=== PATIENT | female | born 1945 | race Caucasian/White ===

== ENCOUNTER 2018-04-21 19:59 | Inpatient (IN) | payer MEDICARE, OTHER ==
[2018-04-21] MEDS ORDERED: SODIUM CHLORIDE 0.9% 1,000 ML IV STA (20:25)
[2018-04-21 20:37] LABS: Basophils % (A) 1 %; Eosinophils # (A) 0.1 k/uL (0-0.7); Eosinophils % (A) 2 %; HCT 48.4 % (34.0-46.0); HGB 15.6 gm/dL (11.4-16.0); Lymphocytes # (A) 1.8 k/uL (1.0-4.8); Lymphocytes % (A) 25 %; MCH 29.8 pg (25.0-35.0); MCHC 32.3 g/dL (31.0-37.0); MCV 92.1 fL (80.0-100.0); Mean Platelet Volume 8.2; Monocytes # (A) 0.5 k/uL (0-1.0); Monocytes % (A) 7 %; Neutrophils # (A) 4.4 k/uL (1.3-7.7); Neutrophils % (A) 63 %; Platelet Count 197 k/uL (150-450); RBC 5.25 m/uL (3.80-5.40); RDW 12.8 % (11.5-15.5); WBC 6.9 k/uL (3.8-10.6)
[2018-04-21 20:45] LABS: INR 0.9 (<1.2); Partial Thromboplastin Time 24.5 sec (22.0-30.0); Prothrombin Time 9.4 sec (9.0-12.0)
[2018-04-21 20:48] LABS: Albumin 4.3 g/dL (3.5-5.0); Calcium 9.8 mg/dL (8.4-10.2); Potassium 4.4 mmol/L (3.5-5.1); Total Bilirubin 0.2 mg/dL (0.2-1.3); Total Protein 6.7 g/dL (6.3-8.2)
[2018-04-21 20:51] LABS: Creatine Kinase 80 U/L (30-135)
--- NOTE | 2018-04-21 21:04 | CT ---
EXAMINATION TYPE: CT angio head neck DATE OF EXAM: 04/21/2018 HISTORY: Left hand numbness. COMPARISON: None CT DLP: 217.3 mGycm. Automated Exposure Control for Dose Reduction was Utilized. TECHNIQUE: CTA scan of the neck is performed with IV Contrast, patient injected with 65ml mL of Isov ue 370, axial images are obtained, coronal and sagittal reformatted images are reviewed. Three-D leonardo nstructed images are created on an independent workstation and reviewed. FINDINGS: There is atheromatous change at the aortic arch. There is normal branching pattern of the great vesse ls on the aortic arch. There is arterial flow in both vertebral arteries. Right vertebral artery slig htly larger than the left. There is arterial flow in the common internal and external carotid arteries bilaterally. There is dif fuse plaque at the carotid artery bifurcations. Plaque is more on the right side compared to the left . There is lumen narrowing on the left side of 30% and on the right side of 50-60%. There is no evide nce of carotid or vertebral artery dissection. There is arterial flow in the vertebrobasilar artery system. There is arterial flow in the anterior m iddle and posterior cerebral arteries. There is bilateral patency of the posterior communicating liban adam. I see no evidence of aneurysm or neovascularity. There is normal contrast opacification of the venous sinuses. IMPRESSION: No intracranial abnormality demonstrated. Atherosclerotic plaque at the carotid artery bifurcations and 60% stenosis on the right side at the o rigin right internal carotid artery and 30% on the left side.
[2018-04-21 21:05] LABS: Creatine Kinase MB 1.4 ng/mL (0.0-2.4); Troponin I <0.012 ng/mL (0.000-0.034)
[2018-04-21 21:08] LABS: Glucose,Whole Blood 99 mg/dL (75-99)
--- NOTE | 2018-04-21 21:28 | CT ---
EXAMINATION TYPE: CT brain wo con for TPA DATE OF EXAM: 04/21/2018 COMPARISON: 07/19/2010 HISTORY: Left hand numbness. CT DLP: 951.7 mGycm Automated exposure control for dose reduction was used. FINDINGS: There is mild cerebral cortical atrophy. There is no mass effect nor midline shift. There is no sign of intracranial hemorrhage. The calvarium is intact. IMPRESSION: MILD ATROPHY. NO ACUTE INTRACRANIAL ABNORMALITY. NO CHANGE.
--- NOTE | 2018-04-21 21:35 | XR ---
EXAMINATION TYPE: XR chest 2V DATE OF EXAM: 04/21/2018 COMPARISON: NONE HISTORY: Numbness TECHNIQUE: Frontal and lateral views of the chest are obtained. FINDINGS: Heart and mediastinum are normal. Lungs are clear. Costophrenic angles are clear. There is mild flattening of the diaphragm. Bony thorax is intact. IMPRESSION: There is probably some COPD. No active cardiopulmonary disease.
[2018-04-21] MEDS ORDERED: ASPIRIN 81 MG PO STA (21:40)
[2018-04-21] MEDS ORDERED: NALOXONE 0.4 MG/ML 1 ML VIAL IV PRN (21:44)
--- NOTE | 2018-04-21 21:46 | ED ---
Neuro HPI - General Chief Complaint: Neuro Symptoms/Deficit Stated Complaint: Hand Numbness Source: patient Mode of arrival: ambulatory Limitations: no limitations - History of Present Illness Is the patient presenting with stroke symptoms?: Yes Last Known Well Date: 04/21/18 Last Known Well Time: 19:15 Initial Comments: Dictation was produced using Xambala dictation software. please excuse any grammatical, word or spelling errors. Chief Complaint: Patient is a 72-year-old female with past history of bilateral belt positive presents with left hand weakness 60 minutes. History of Present Illness: By private vehicle. She has a past medical history of bilateral belt palsy. She was using a calculated when she expressed acute onset weakness in her left hand. Patient has no history of stroke. Prior to these symptoms patient reports being at baseline. No other complaints at this time. The ROS documented in this emergency department record has been reviewed and confirmed by me. Those systems with pertinent positive or negative responses have been documented in the HPI. All other systems are other negative and/or noncontributory. - Related Data Home Medications: Home Medications Medication Instructions Recorded Confirmed Losartan Potassium 50 mg PO DAILY 04/21/18 04/21/18 Allergies/Adverse Reactions: Allergies Allergy/AdvReac Type Severity Reaction Status Date / Time cortisone Allergy Rash/Hives Verified 04/21/18 20:28 Review of Systems ROS Statement: Those systems with pertinent positive or pertinent negative responses have been documented in the HPI. ROS Other: All systems not noted in ROS Statement are negative. General Exam - General Exam Comments Initial Comments: PHYSICAL EXAM: General Impression: Alert and oriented x3, not in acute distress HEENT: Normocephalic atraumatic, extra-ocular movements intact, pupils equal and reactive to light bilaterally, mucous membranes moist. Cardiovascular: Heart regular rate and rhythm, S1&S2 audible, no murmurs, rubs or gallops Chest: Lungs clear to auscultation bilaterally, no rhonchi, no wheeze, no rales Abdomen: Bowel sounds present, abdomen soft, non-tender, non-distended, no organomegaly Musculoskeletal: Pulses present and equal in all extremities, no peripheral edema Motor: Power 5/5 bilaterally, no focal deficits noted Neurological: CN II-XII grossly intact, weakness to hand of the thumb and second digit. No sensory deficit. Skin: Intact with no visualized rashes Psych: Normal affect and mood Limitations: no limitations Stroke MDM - Lab Data Result diagrams: 04/21/18 20:20 04/21/18 20:20 Lab Results 04/21/18 04/21/18 04/21/18 Range/Units 20:20 20:20 20:20 WBC 6.9 (3.8-10.6) k/uL RBC 5.25 (3.80-5.40) m/uL Hgb 15.6 (11.4-16.0) gm/dL Hct 48.4 H (34.0-46.0) % MCV 92.1 (80.0-100.0) fL MCH 29.8 (25.0-35.0) pg MCHC 32.3 (31.0-37.0) g/dL RDW 12.8 (11.5-15.5) % Plt Count 197 (150-450) k/uL Neutrophils % 63 % Lymphocytes % 25 % Monocytes % 7 % Eosinophils % 2 % Basophils % 1 % Neutrophils # 4.4 (1.3-7.7) k/uL Lymphocytes # 1.8 (1.0-4.8) k/uL Monocytes # 0.5 (0-1.0) k/uL Eosinophils # 0.1 (0-0.7) k/uL Basophils # 0.0 (0-0.2) k/uL PT (9.0-12.0) sec INR (<1.2) APTT (22.0-30.0) sec Sodium 143 (137-145) mmol/L Potassium 4.4 (3.5-5.1) mmol/L Chloride 106 (98-107) mmol/L Carbon Dioxide 27 (22-30) mmol/L Anion Gap 10 mmol/L BUN 19 H (7-17) mg/dL Creatinine 0.90 (0.52-1.04) mg/dL Est GFR (CKD-EPI)AfAm 74 (>60 ml/min/1.73 sqM) Est GFR (CKD-EPI)NonAf 64 (>60 ml/min/1.73 sqM) Glucose 105 H (74-99) mg/dL POC Glucose (mg/dL) (75-99) mg/dL POC Glu Oncology Technician ID Calcium 9.8 (8.4-10.2) mg/dL Total Bilirubin 0.2 (0.2-1.3) mg/dL AST 24 (14-36) U/L ALT 30 (9-52) U/L Alkaline Phosphatase 72 (38-126) U/L Total Creatine Kinase 80 (30-135) U/L CK-MB (CK-2) 1.4 (0.0-2.4) ng/mL CK-MB (CK-2) Rel Index 1.8 Troponin I <0.012 (0.000-0.034) ng/mL Total Protein 6.7 (6.3-8.2) g/dL Albumin 4.3 (3.5-5.0) g/dL 04/21/18 04/21/18 Range/Units 20:20 21:07 WBC (3.8-10.6) k/uL RBC (3.80-5.40) m/uL Hgb (11.4-16.0) gm/dL Hct (34.0-46.0) % MCV (80.0-100.0) fL MCH (25.0-35.0) pg MCHC (31.0-37.0) g/dL RDW (11.5-15.5) % Plt Count (150-450) k/uL Neutrophils % % Lymphocytes % % Monocytes % % Eosinophils % % Basophils % % Neutrophils # (1.3-7.7) k/uL Lymphocytes # (1.0-4.8) k/uL Monocytes # (0-1.0) k/uL Eosinophils # (0-0.7) k/uL Basophils # (0-0.2) k/uL PT 9.4 (9.0-12.0) sec INR 0.9 (<1.2) APTT 24.5 (22.0-30.0) sec Sodium (137-145) mmol/L Potassium (3.5-5.1) mmol/L Chloride (98-107) mmol/L Carbon Dioxide (22-30) mmol/L Anion Gap mmol/L BUN (7-17) mg/dL Creatinine (0.52-1.04) mg/dL Est GFR (CKD-EPI)AfAm (>60 ml/min/1.73 sqM) Est GFR (CKD-EPI)NonAf (>60 ml/min/1.73 sqM) Glucose (74-99) mg/dL POC Glucose (mg/dL) 99 (75-99) mg/dL POC Glu Oncology Technician Roxann Call Calcium (8.4-10.2) mg/dL Total Bilirubin (0.2-1.3) mg/dL AST (14-36) U/L ALT (9-52) U/L Alkaline Phosphatase (38-126) U/L Total Creatine Kinase (30-135) U/L CK-MB (CK-2) (0.0-2.4) ng/mL CK-MB (CK-2) Rel Index Troponin I (0.000-0.034) ng/mL Total Protein (6.3-8.2) g/dL Albumin (3.5-5.0) g/dL - Medical Decision Making ED course: His 72-year-old female who presents with acute onset left hand weakness. Patient presented approximately at 1 hour after onset of symptoms. Patient has no history of stroke. Code stroke was activated. Patient was given an initial NIH of 1. Patient is very by stroke robot. Risk and benefits were discussed with patient. Patient did not want to pursue TPA at this time. CT imaging was found to be unremarkable. Vital signs upon arrival shows blood pressure of 222/83, rest of vital signs within normal limits. EKG is benign. Patient given aspirin. Laboratory evaluation obtained. Found to be unremarkable. Patient reevaluated with improvement of symptoms. Patient be admitted to hospitalist for further workup and care. Short neurologist recommended MRI head and neck EKG Interpretation: A 12 lead EKG was obtained. It was interpreted by myself and attending physician. There is a P wave before every QRS complex. Rate is 67. Rhythm is, sinus rhythm, AK interval 150, QRS 76, QTC 460. QT is not prolonged. No ST segment depression or elevation. Overall, this EKG is unremarkable Past Medical History Past Medical History: Hypertension Additional Past Medical History / Comment(s): [place] palsy History of Any Multi-Drug Resistant Organisms: None Reported Additional Past Surgical History / Comment(s): Ulcer surgery Past Psychological History: No Psychological Hx Reported Smoking Status: Current every day smoker Past Alcohol Use History: Occasional Past Drug Use History: None Reported Course Vital Signs 04/21/18 04/21/18 04/21/18 20:10 20:15 20:30 Temperature 98.6 F Pulse Rate 76 81 75 Respiratory 18 19 18 Rate Blood Pressure 222/83 244/110 243/104 O2 Sat by Pulse 97 96 96 Oximetry Disposition Clinical Impression: TIA (transient ischemic attack) Disposition: ADMITTED IP TO THIS HOSP Condition: Fair Referrals: Emmanuel Londono MD [Primary Care Provider] - 1-2 days Time of Disposition: 21:46
[2018-04-21 23:02] VITALS: BMI 21.1
[2018-04-22] MEDS: HEPARIN SODIUM,PORCINE 5,000 UNIT/ML 1 ML VIAL SQ SCH ×4 (00:34→23:07)
[2018-04-22] MEDS: LOSARTAN 50 MG TAB PO SCH (08:34)
--- NOTE | 2018-04-22 13:07 | P.CONS ---
History of Present Illness - Reason for Consult Consult date: 04/22/18 Left hand weakness - Chief Complaint Left hand weakness - History of Present Illness This is a pleasant 72-year-old female being evaluated by the neurology service for left hand weakness and numbness. She was at home yesterday when she had acute onset of left hand weakness. She has a history of newly diagnosed hypertension just started on medication. Her blood pressures in the ER were quite elevated, the highest of which was 243/104. She denies history of stroke. She was brought to [facility] emergency room. CT of the neck did show 30% stenosis of the left internal carotid artery and 60% stenosis on the right. Her symptoms are resolving slowly and involve the thumb and index and middle finger of her left hand. Her sensory disturbance however extends to the middle forearm. At the time my exam she is resting comfortably in bed in no acute distress. She is a longtime smoker. Review of Systems All systems: negative Constitutional: Reports as per HPI Past Medical History Past Medical History: Hypertension, Skin Disorder Additional Past Medical History / Comment(s): [place] palsy, perforated ulcer, shingles on December 2017 History of Any Multi-Drug Resistant Organisms: None Reported Additional Past Surgical History / Comment(s): Ulcer surgery Past Anesthesia/Blood Transfusion Reactions: No Reported Reaction Past Psychological History: No Psychological Hx Reported Smoking Status: Current every day smoker Past Alcohol Use History: Occasional Past Drug Use History: None Reported Medications and Allergies Home Medications Medication Instructions Recorded Confirmed Type Losartan Potassium 50 mg PO DAILY 04/21/18 04/21/18 History Allergies Allergy/AdvReac Type Severity Reaction Status Date / Time cortisone Allergy Rash/Hives Verified 04/21/18 20:28 Physical Exam Vitals: Vital Signs Temp Pulse Pulse Resp BP BP Pulse Ox 04/22/18 12:00 98.4 F 61 20 144/65 95 04/22/18 08:20 96.2 F L 57 L 20 157/76 96 04/22/18 04:00 97.4 F L 61 16 149/70 95 04/21/18 22:35 18 04/21/18 22:30 98.9 F 81 18 176/83 97 04/21/18 22:29 98.3 F 78 18 156/83 95 04/21/18 22:15 72 19 177/84 97 04/21/18 22:00 68 17 230/98 97 04/21/18 21:45 67 19 181/74 96 04/21/18 21:30 70 19 196/88 95 04/21/18 21:15 70 19 232/96 96 04/21/18 21:00 78 19 213/100 97 04/21/18 20:45 76 18 211/121 96 04/21/18 20:30 75 18 243/104 96 04/21/18 20:15 81 19 244/110 96 04/21/18 20:10 98.6 F 76 18 222/83 97 Intake and Output 04/21/18 04/22/18 04/22/18 22:59 06:59 14:59 Intake Total 240 240 Balance 240 240 Intake: Oral 240 240 Other: Voiding Method Toilet Toilet # Voids 2 Weight 61.235 kg - Constitutional General appearance: average body habitus, cooperative, no acute distress - EENT Eyes: no abnormal pupil, EOMI, PERRLA, no ptosis ENT: hearing grossly normal - Neck Neck: normal ROM, no rigidity - Respiratory Respiratory: negative: prolonged expiration, prolonged inspiration - Cardiovascular Rhythm: regular - Gastrointestinal General gastrointestinal: no distended, no tenderness - Neurologic The patient is alert awake and oriented 3. Speech and language are normal. There is no facial asymmetry. 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 There is no sensory deficit except for slightly decreased sensation of the left hand extending to the mid forearm.. No tremors or seizures are seen. Cranial nerves II through XII are intact globally. Results CBC & Chem 7: 04/21/18 20:20 04/21/18 20:20 Labs: Abnormal Lab Results - Last 24 Hours (Table) 04/21/18 04/21/18 Range/Units 20:20 20:20 Hct 48.4 H (34.0-46.0) % BUN 19 H (7-17) mg/dL Glucose 105 H (74-99) mg/dL Assessment and Plan (1) Left hand weakness Current Visit: Yes Status: Acute Code(s): R29.898 - OTH SYMPTOMS AND SIGNS INVOLVING THE MUSCULOSKELETAL SYSTEM SNOMED Code(s): 41324205530219796 (2) Numbness of left hand Current Visit: Yes Status: Acute Code(s): R20.0 - ANESTHESIA OF SKIN SNOMED Code(s): 298910962 (3) Hypertension Current Visit: Yes Status: Chronic Code(s): I10 - ESSENTIAL (PRIMARY) HYPERTENSION SNOMED Code(s): 15428353 (4) Tobacco use disorder Current Visit: Yes Status: Chronic Code(s): F17.200 - NICOTINE DEPENDENCE, UNSPECIFIED, UNCOMPLICATED SNOMED Code(s): 714751023 (5) Carotid stenosis Current Visit: Yes Status: Chronic Code(s): I65.29 - OCCLUSION AND STENOSIS OF UNSPECIFIED CAROTID ARTERY SNOMED Code(s): 03429861 Plan: The patient is experiencing some persistent, 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 The distribution of her weakness has been in a median nerve pattern. So, simple nerve compression is in the differential. However, given her significantly elevated blood pressure and history of smoking, we will workup to rule out stroke. I have ordered an MRI of the brain,lipid panel and serum homocysteine level. She will be started on 81 mg aspirin. Recommend strict control of her blood pressure and possible cardiovascular consult for her finding of mild to moderate carotid stenosis. Consult physical and occupational therapy. We'll make further recommendations based on the above studies. It might not be a bad idea to go ahead and start her on Lipitor, but I will wait for the above studies first. We will Continue to follow. I have performed a history and physical on the above patient. I have reviewed the above note, and agree.
[2018-04-22] MEDS: ASPIRIN 81 MG PO SCH (22:30)
[2018-04-22] MEDS: ATORVASTATIN 40 MG TAB PO SCH (22:31)
--- NOTE | 2018-04-22 23:10 | HP ---
HISTORY AND PHYSICAL DATE OF SERVICE: 04/22/2018 PRESENTING COMPLAINT: Left arm weakness. HISTORY OF PRESENTING COMPLAINT: This is a pleasant 71-year-old patient of Dr. Londono. Chronic stable medical conditions include hypertension, bilateral Mitchell palsy, psoriasis, peptic ulcer disease. The patient is very active in the yard and outside, yesterday did a lot of weeding at her daughter's place and also was cutting hedges with a ismael, holding up the ismael above the level of her shoulder. Later while she was sitting down, she had a calculator in the left arm and suddenly the calculator fell down. 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 There was concern about a stroke and she came in the ER. Video consultation was done with stroke team and they thought this could be more of a peripheral lesion, but could not rule out a central cause; hence, patient was admitted for the same. The patient did have a CT scan of the brain and CT angio. No intracranial abnormalities were found. The patient still has still some weakness in the left hand pet care associate. Denies any change in vision, speech, headaches, or trouble walking. There has been some improvement, but still has weakness present. Neurology was consulted. REVIEW OF SYSTEMS: CONSTITUTIONAL: None. HEENT: Bilateral facial weakness, chronic. RESPIRATORY: None. CARDIOVASCULAR: None. GASTROINTESTINAL: None. GENITOURINARY: None. MUSCULOSKELETAL: None. DERMATOLOGICAL: None. HEMATOLOGIC: None. LYMPHATIC: None. PSYCHIATRY: None. NEUROLOGICAL: As above. PAST MEDICAL HISTORY: Hypertension, bilateral Mitchell palsy, peptic ulcer disease, perforation, shingles, psoriasis. PAST SURGICAL HISTORY: Peptic ulcer disease surgery. SOCIAL HISTORY: The patient smokes about a pack a day close to 50 years. Alcohol: 6-7 drinks a week. . FAMILY HISTORY: Reviewed, noncontributory to presentation. HOME MEDICATIONS: Losartan 50 mg a day. ALLERGIES: CORTISOL. EXAMINATION: VITAL SIGNS: On presentation, temperature 98.6, pulse 76, respirations 18, blood pressure was 222/83, pulse ox 97% on room air. GENERAL APPEARANCE: Thin build, sitting up, awake. EYES: Pupil equal. Conjunctivae normal. HEENT: External appearance of nose and ears normal. Oral cavity normal. NECK: JVD not raised. Mass not palpable. RESPIRATORY: Effort normal. Lungs are clear. CARDIOVASCULAR: First and second sounds normal. No edema. ABDOMEN: Soft, nontender. Liver and spleen not palpable. LYMPHATIC: No lymph nodes palpable in neck or axillae. PSYCHIATRY: Alert and oriented x3. Mood and affect normal. NEUROLOGICAL: Pupils equal. Cranial nerves grossly intact. Power and sensation grossly intact except in the left arm. There is some weakness of the distal muscles, particularly in the median nerve distribution. Proximal weakness is not present. INVESTIGATIONS: White count 6.9, hemoglobin 13.6. Potassium 4.4, BUN 19, creatinine 0.90. CT scan of the brain: Mild atrophy. ASSESSMENT: 1. This is a patient who presents with weakness of the left distal arm, more so in the median nerve distribution. This well could be a central cause/stroke. 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 At this point, could not be done and the neuro workup is in place. 2. Chronic bilateral Mitchell palsy. 3. Essential hypertension, accelerated, present on admission. 4. Psoriasis. PLAN: Neurology was consulted, who ordered an MRI, carotid Doppler. The patient will be put on aspirin, Lipitor. Care was discussed the patient. Questions were answered. MMODL / IJN: [id number] /
[2018-04-23 06:32] LABS: Cholesterol 249 mg/dL (<200); HDL Cholesterol 67 mg/dL (40-60); LDL Cholesterol,Calculated 154 mg/dL (0-99); Triglycerides 142 mg/dL (<150)
[2018-04-23] MEDS: HEPARIN SODIUM,PORCINE 5,000 UNIT/ML 1 ML VIAL SQ SCH ×3 (08:12→23:00)
--- NOTE | 2018-04-23 14:45 | P.PN ---
Subjective Progress Note Date: 04/23/18 Principal diagnosis: Left hand weakness Is a pleasant 72-year-old female continuing be evaluated by the neurology service for the above complaints. He has had no new neurological symptoms since my last exam. The numbness in her left distal upper extremity persists. At the time my exam she is resting comfortably in bed in no acute distress. Her lipid panel did come back with a triglyceride of 142, cholesterol 249, LDL of 154, and HDL of 67. She has been started on Lipitor 40 mg daily. Objective - Vital Signs Vital signs: Vital Signs Temp 97.5 F L 04/23/18 12:00 Pulse 60 04/23/18 12:00 Resp 18 04/23/18 12:00 BP 149/73 04/23/18 12:00 Pulse Ox 94 L 04/23/18 12:00 Intake & Output 04/22/18 04/23/18 04/23/18 18:59 06:59 18:59 Intake Total 1020 480 600 Balance 1020 480 600 Weight 62.1 kg Intake: Oral 1020 480 600 Other: Voiding Method Toilet # Voids 1 - Constitutional General appearance: Present: average body habitus, cooperative, no acute distress - EENT Eyes: Present: EOMI, PERRLA. Absent: abnormal pupil, ptosis ENT: Present: hearing grossly normal - Neck Neck: Present: normal ROM. Absent: rigidity - Respiratory Respiratory: negative: prolonged expiration, prolonged inspiration - Cardiovascular Rhythm: regular - Gastrointestinal General gastrointestinal: Absent: distended, tenderness - Neurologic Neurologic Comment(s): The patient is alert awake and oriented 3. Speech and language are normal. There is no pathological facial asymmetry, but she does have some minimal deficits consistent with her history of chronic bilateral Mitchell's palsy.. Strength is 5 out of 5 in bilateral upper and lower extremities except 5 minus out of 5 in wash test checker strength on the left.. There is no sensory deficit except for slightly decreased sensation on the left hand extending to the mid forearm.. No tremors or seizures are seen. Cranial nerves II through XII are intact globally. - Labs CBC & Chem 7: 04/21/18 20:20 04/21/18 20:20 Labs: Abnormal Lab Results - Last 24 Hours (Table) 04/23/18 Range/Units 05:57 Cholesterol 249 H (<200) mg/dL LDL Cholesterol, Calc 154 H (0-99) mg/dL HDL Cholesterol 67 H (40-60) mg/dL Assessment and Plan (1) Left hand weakness Current Visit: Yes Status: Acute Code(s): R29.898 - OTH SYMPTOMS AND SIGNS INVOLVING THE MUSCULOSKELETAL SYSTEM SNOMED Code(s): 32314017902890248 (2) Numbness of left hand Current Visit: Yes Status: Acute Code(s): R20.0 - ANESTHESIA OF SKIN SNOMED Code(s): 597641508 (3) Hypertension Current Visit: Yes Status: Chronic Code(s): I10 - ESSENTIAL (PRIMARY) HYPERTENSION SNOMED Code(s): 95015832 (4) Tobacco use disorder Current Visit: Yes Status: Chronic Code(s): F17.200 - NICOTINE DEPENDENCE, UNSPECIFIED, UNCOMPLICATED SNOMED Code(s): 043516716 (5) Carotid stenosis Current Visit: Yes Status: Chronic Code(s): I65.29 - OCCLUSION AND STENOSIS OF UNSPECIFIED CAROTID ARTERY SNOMED Code(s): 79960531 Plan: The patient is experiencing some persistent, mild left hand wash test checker weakness accompanied by some extending numbness into the forearm. The distribution of her weakness has been in a median nerve pattern. So, simple nerve compression is in the differential. However, given her significantly elevated blood pressure and history of smoking, we will workup to rule out stroke. I have ordered an MRI of the brain,lipid panel and serum homocysteine level. She will continue 81 mg aspirin and Lipitor as above. Recommend strict control of her blood pressure and possible cardiovascular consult for her finding of mild to moderate carotid stenosis. Continue physical and occupational therapy. We'll make further recommendations based on the above studies. We will Continue to follow. I have performed a history and physical on the above patient. I have reviewed the above note, and agree.
[2018-04-23] MEDS: LOSARTAN 50 MG TAB PO SCH (16:13)
[2018-04-23] MEDS: ASPIRIN 81 MG PO SCH (16:13)
--- NOTE | 2018-04-23 20:11 | PN ---
PROGRESS NOTE DATE OF SERVICE: 04/23/18. PRESENTING COMPLAINT: Left arm weakness. INTERVAL HISTORY: This patient presented with left arm weakness in the median nerve distribution. It is possible she could have brachial plexus strain from cutting the hedges. Also, stroke needs to be ruled out. The patient is still having trouble using left index and thumb finger. REVIEW OF SYSTEMS: Done for constitutional, cardiovascular, GI, pulmonary; relevant findings as above. CURRENT MEDICATIONS: Reviewed that includes Lipitor and aspirin. PHYSICAL EXAMINATION: Temperature 97.5, pulse 50, respiratory 18, blood pressure 148/73, pulse ox 94% on room air. GENERAL APPEARANCE: Sitting up, comfortable. EYES: Pupils equal. Conjunctivae normal. HEENT: External appearance of nose and ears normal. Oral cavity normal. NECK: JVD not raised. Mass not palpable. RESPIRATORY: Effort, lungs are clear. CARDIOVASCULAR: 1st and 2nd sounds normal. No edema. ABDOMEN: Soft, nontender. Liver and spleen not palpable. NEUROLOGICAL: Patient is still weak in the median nerve distribution in the left arm. INVESTIGATIONS: LDL is 154. ASSESSMENT: 1. Possible acute stroke in the right middle cerebral artery area, though it could be a median nerve problem affecting from the brachial nerves. 2. Hyperlipidemia. 3. Essential hypertension uncontrolled, on presentation. 4. Chronic bilateral Mitchell's palsy. 5. Psoriasis. PLAN: Care was discussed with the patient. Awaiting MRI. The patient is already on Lipitor. The patient's blood pressure is more decent today. Follow. MMODL / IJN: [id number] /
[2018-04-23] MEDS: ATORVASTATIN 40 MG TAB PO SCH (20:24)
--- NOTE | 2018-04-24 09:28 | MR ---
EXAMINATION TYPE: MR brain wo con DATE OF EXAM: 04/24/2018 COMPARISON: CT brain from 3 days ago. HISTORY: left hand weakness/sensory deficit on admission 3 days earlier. TECHNIQUE: Multiplanar, multisequence imaging of the brain and brainstem is performed without IV cont rast. FINDINGS: Diffusion weighted images demonstrate foci of increased signal on diffusion weighted images with dimi nished signal on ADC mapping that show subtle T2 hyperintensity in the high right frontal subcortical white matter seen best images 192 and 200 series 305 consistent with foci of evolving acute lacunar infarction. Largest on image 200 is in the premotor cortex anterior to the precentral sulcus. There is stable asymmetric mild CSF prominence or bilateral frontal lobe suggesting mild symmetric atrophy. The ventricular system and cisternal spaces are otherwise normal in size and appearance. The brain volume is age appropriate. Some small scattered foci of T2 hyperintensity throughout the white matte r are present. Approximately 20 to 30 small scattered lesions are seen. Midline structures demonstrate normal morphology. The craniocervical junction appears within normal limits. Normal vascular flow voids are present. The visualized sinuses are clear and the globes are i ntact. IMPRESSION: 1. Multifocal Areas of evolving acute lacunar infarction high right frontal lobe as detailed above. 2. Background mild diffuse cerebral atrophy most prominent over bilateral frontal lobes and mild to b orderline moderate chronic small vessel ischemic change.
[2018-04-24] MEDS: HEPARIN SODIUM,PORCINE 5,000 UNIT/ML 1 ML VIAL SQ SCH ×2 (09:39→15:38)
[2018-04-24] MEDS: ASPIRIN 81 MG PO SCH (09:40)
[2018-04-24] MEDS: CHLORTHALIDONE 25 MG TAB PO SCH (09:41)
[2018-04-24] MEDS: LOSARTAN 50 MG TAB PO SCH (09:41)
--- NOTE | 2018-04-24 15:56 | P.PN ---
Subjective Progress Note Date: 04/24/18 Principal diagnosis: Stroke This is a pleasant 72-year-old female continuing be evaluated by the neurology service for the above complaints. She has had no new neurological symptoms since my last exam. The numbness in her left distal upper extremity persists. At the time my exam she is resting comfortably in bed in no acute distress. Her lipid panel did come back with a triglyceride of 142, cholesterol 249, LDL of 154, and HDL of 67. She has been started on Lipitor 40 mg daily. I discussed the results of her MRI with her. It did show multifocal areas of evolving acute lacunar infarcts high right frontal lobe. There was also mild to moderate chronic small vessel ischemic changes. A transesophageal echocardiogram is already being planned to rule out intracardiac thrombus. Objective - Vital Signs Vital signs: Vital Signs Temp 98.5 F 04/24/18 12:00 Pulse 67 04/24/18 12:00 Resp 18 04/24/18 12:00 BP 125/81 04/24/18 12:00 Pulse Ox 94 L 04/24/18 12:00 Intake & Output 04/23/18 04/24/18 04/24/18 18:59 06:59 18:59 Intake Total 880 200 240 Balance 880 200 240 Weight 61.1 kg Intake: Oral 880 200 240 Other: Voiding Method Toilet Toilet # Voids 3 1 - Constitutional General appearance: Present: average body habitus, cooperative, no acute distress - EENT Eyes: Present: EOMI, PERRLA. Absent: abnormal pupil, ptosis ENT: Present: hearing grossly normal - Neck Neck: Present: normal ROM. Absent: rigidity - Respiratory Respiratory: negative: prolonged expiration, prolonged inspiration - Cardiovascular Rhythm: regular - Gastrointestinal General gastrointestinal: Absent: distended - Neurologic Neurologic Comment(s): Patient is awake alert and oriented 3. Speech and language are normal. Minimal deficits as mentioned before with her chronic history of bilateral Mitchell' s palsy. She still has some mild fitness/wellness director weakness on the left. Otherwise strength is full. He still has some mild sensory deficit of the left hand and mid forearm, otherwise there are no sensory deficits. Tremors or seizure-like activities are seen. Cranial nerves II through XII are globally intact except mentioned above. There is no dysmetria or dysdiadochokinesia. - Labs CBC & Chem 7: 04/21/18 20:20 04/21/18 20:20 Labs: Abnormal Lab Results - Last 24 Hours (Table) 04/23/18 Range/Units 05:57 Homocysteine 14.46 H (4.00-14.00) umol/L Assessment and Plan (1) Left hand weakness Current Visit: Yes Status: Acute Code(s): R29.898 - OTH SYMPTOMS AND SIGNS INVOLVING THE MUSCULOSKELETAL SYSTEM SNOMED Code(s): 97949060323410425 (2) Numbness of left hand Current Visit: Yes Status: Acute Code(s): R20.0 - ANESTHESIA OF SKIN SNOMED Code(s): 414905747 (3) Hypertension Current Visit: Yes Status: Chronic Code(s): I10 - ESSENTIAL (PRIMARY) HYPERTENSION SNOMED Code(s): 54399576 (4) Tobacco use disorder Current Visit: Yes Status: Chronic Code(s): F17.200 - NICOTINE DEPENDENCE, UNSPECIFIED, UNCOMPLICATED SNOMED Code(s): 792021497 (5) Carotid stenosis Current Visit: Yes Status: Chronic Code(s): I65.29 - OCCLUSION AND STENOSIS OF UNSPECIFIED CAROTID ARTERY SNOMED Code(s): 17725386 (6) CVA (cerebral vascular accident) Current Visit: Yes Status: Acute Code(s): I63.9 - CEREBRAL INFARCTION, UNSPECIFIED SNOMED Code(s): 394006676 Plan: This patient has acute lacunar infarcts in the middle cerebral artery distribution on the right. The patient is experiencing some persistent, mild left hand fitness/wellness director weakness accompanied by some extending numbness into the forearm. Transesophageal echocardiogram has been ordered to rule out intracardiac thrombus. I have discussed the results of her MRI of the brain and lipid panel with her. She will continue 81 mg aspirin and Lipitor as above. Recommend strict control of her blood pressure and follow-up with cardiovascular for her finding of mild to moderate carotid stenosis. Continue physical and occupational therapy. obviously of an intracardiac thrombus was found she would need more aggressive anticoagulation. Otherwise she can be cleared from a neurological standpoint to follow up in our clinic. I have performed a history and physical on the above patient. I have reviewed the above note, and agree.
--- NOTE | 2018-04-24 16:45 | P.CRDCN ---
History of Present Illness Consult date: 04/24/18 Requesting physician: Lion Reyes Reason for Consult (text): cva Chief complaint: Left hand weakness History of present illness: This is a pleasant 72-year-old female who was recently diagnosed with hypertension on April 01, nicotine dependence, she states she drinks approximately 6-7 alcoholic beverages per week, chronic Mitchell's palsy, psoriasis , hyperlipidemia she states she has been on different cholesterol medications in the past and has not felt well on them so she discontinued them, she also has a strong family history of strokes. Cording to the patient, she was holding a calculator in her left hand when it all of a sudden dropped out of her hand, she was unable to use the fingers of her hand. She states that her arm did not have significant weakness it was primarily in her hand. She also then stated that she went to look in a mere to see if she had any facial drooping out of the norm for her, she did not notice any change but came to the emergency room for further evaluation. Blood pressure on arrival to the emergency room to 22/80 with a heart rate in the 70s, 97% on room air. Current blood pressure today 125/80 with a heart rate in the 60s, 94% on room air. She' ll CAT scan of the brain revealed mild atrophy with no acute intracranial abnormality. Chest x-ray showed some COPD but no active cardiopulmonary disease. CT angiography did not reveal any intracranial abnormality. Atherosclerotic plaque at the carotid artery bifurcation 60% stenosis on the right side at the origin internal carotid artery and 30% on the left. MRI of the brain showed multifocal areas of resolving acute lacunar infarction high right frontal lobe. Mild diffuse cerebral atrophy most prominent over the bilateral frontal lobes and mild to moderate chronic small vessel ischemic change noted. EKG shows normal sinus rhythm with no acute changes. Blood cell count is normal, hemoglobin 15.6, hematocrit 48.4, platelet count 197. Sodium 143, potassium 4.4, BUN 19, creatinine 0.9. Troponin 0.012. Cholesterol 249, LDL 154, HDL 67, homocysteine 14.46. At the time of my examination, patient still cannot completely use her first 2 fingers on the left hand. Otherwise, no neural deficits were noted. No echocardiogram with Doppler study was performed. Cardiology was requested to see the patient for YOSEF. The procedure as well as risks and benefits of the YOSEF were explained to the patient in detail. This will be performed tomorrow by Dr. Smith. Past Medical History Past Medical History: Hypertension, Skin Disorder Additional Past Medical History / Comment(s): [place] palsy, perforated ulcer, shingles on December 2017 History of Any Multi-Drug Resistant Organisms: None Reported Additional Past Surgical History / Comment(s): Ulcer surgery Past Anesthesia/Blood Transfusion Reactions: No Reported Reaction Past Psychological History: No Psychological Hx Reported Smoking Status: Current every day smoker Past Alcohol Use History: Occasional Past Drug Use History: None Reported Medications and Allergies Home Medications Medication Instructions Recorded Confirmed Type Losartan Potassium 50 mg PO DAILY 04/21/18 04/21/18 History Allergies Allergy/AdvReac Type Severity Reaction Status Date / Time cortisone Allergy Rash/Hives Verified 04/21/18 20:28 Physical Exam Vitals: Vital Signs Temp Pulse Resp BP Pulse Ox 04/24/18 12:00 98.5 F 67 18 125/81 94 L 04/24/18 08:00 98.2 F 60 18 149/78 95 04/24/18 04:00 97.2 F L 57 L 18 148/73 95 04/23/18 23:19 98.1 F 61 18 144/81 96 04/23/18 20:00 98.9 F 65 18 156/91 93 L Intake and Output 04/24/18 04/24/18 04/24/18 06:59 14:59 22:59 Intake Total 200 240 Balance 200 240 Intake: Oral 200 240 Other: Voiding Method Toilet Toilet # Voids 1 Weight 61.1 kg PHYSICAL EXAMINATION: GENERAL: 72-year-old female in no acute distress at the time of my examination HEENT: Head is atraumatic, normocephalic. Pupils equal, round. Sclera anicteric. Conjunctiva are clear. Mucous membranes of the mouth are moist. Neck is supple. There is no elevated jugular venous pressure.] bruit is heard. HEART EXAMINATION: Heart S1, S2 normal. No murmur or gallop heard. CHEST EXAMINATION: Lungs are clear to auscultation and precussion. No chest wall tenderness is noted on palpation or with deep breathing. ABDOMEN: Soft, nontender. Bowel sounds are heard. No organomegaly noted. EXTREMITIES: 2+ peripheral pulses with no evidence of peripheral edema and no calf tenderness noted. NEUROLOGIC patient is awake, alert and oriented OX3. 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 . Results 04/21/18 20:20 04/21/18 20:20 Current Medications Generic Name Dose Route Start Last Admin Trade Name Ck PRN Reason Stop Dose Admin Aspirin 81 mg 04/22/18 22:15 04/24/18 09:40 Aspirin PO 81 mg DAILY EDITA Administration Atorvastatin Calcium 40 mg 04/22/18 22:15 04/23/18 20:24 Lipitor PO Not Given HS EDITA Chlorthalidone 25 mg 04/24/18 09:00 04/24/18 09:41 [place] PO 25 mg DAILY EDITA Administration Heparin Sodium (Porcine) 5,000 unit 04/22/18 00:00 04/24/18 15:38 Heparin SQ 5,000 unit Q8HR EDITA Administration Losartan Potassium 50 mg 04/22/18 09:00 04/24/18 09:41 Cozaar PO 50 mg DAILY EDITA Administration Naloxone HCl 0.2 mg 04/21/18 21:44 Narcan IV Q2M PRN Opioid Reversal Intake and Output 04/24/18 04/24/18 04/24/18 06:59 14:59 22:59 Intake Total 200 240 Balance 200 240 Intake: Oral 200 240 Other: Voiding Method Toilet Toilet # Voids 1 Weight 61.1 kg 04/21/18 20:20 04/21/18 20:20 EKG Interpretations (text) EKG shows normal sinus rhythm with no acute changes. Assessment and Plan Plan: Assessment and plan #1 acute lacunar infarct in the high right frontal lobe #2 hypertensive urgency #3 nicotine dependence #4 family history of strokes #5 hyperlipidemia, untreated #6 chronic Mitchell's palsy Plan We will obtain an echocardiogram with Doppler study. Patient will also be scheduled tomorrow to undergo transesophageal echocardiographic study. Patient has been initiated on statin. Further recommendations will be based on these findings and patient's clinical course. DNP note has been reviewed, I agree with a documented findings and plan of care. Patient was seen and examined.
--- NOTE | 2018-04-24 19:08 | ECHOF ---
Referral Reason:cva MEASUREMENTS -------- HEIGHT: 170.2 cm WEIGHT: 60.8 kg BP: 125/81 IVSd: 0.9 cm (0.6 - 1.1) LVIDd: 3.4 cm (3.9 - 5.3) LVPWd: 1.3 cm (0.6 - 1.1) IVSs: 1.3 cm LVIDs: 1.9 cm LVPWs: 1.4 cm RVIDd: 2.5 cm (< 3.3) LAESV Index (A-L): 15.66 ml/m Ao Diam: 2.7 cm (2.0 - 3.7) LA Diam: 2.0 cm (2.7 - 3.8) AV Cusp: 1.6 cm (1.5 - 2.6) MV E Lefty: 0.55 m/s MV DecT: 363 ms MV A Lefty: 0.70 m/s MV E/A Ratio: 0.79 AR PHT: 514 ms RAP: 5.00 mmHg RVSP: 31.82 mmHg FINDINGS -------- Sinus rhythm. This was a technically good study. The left ventricular size is normal. Left ventricular wall thickness is normal. Overall left vent ricular systolic function is normal with, an EF between 55 - 60 %. The right ventricle is normal in size and function. Normal LA size by volume 22+/-6 ml/m2. The right atrium is normal in size. Aortic valve is trileaflet and is mildly thickened. There is [id number] aortic regurgitation. There is no evidence of aortic stenosis. The mitral valve leaflets are mildly thickened. There is trace to mild mitral regurgitation. Trace tricuspid regurgitation present. Right ventricular systolic pressure is normal at < 35 mmHg. There is no evidence of pulmonary hypertension. The pulmonic valve was not well visualized. The aortic root size is normal. Normal inferior vena cava with normal inspiratory collapse consistent with estimated right atrial pre ssure of 5 mmHg. There is no pericardial effusion. CONCLUSIONS -------- 1. Sinus rhythm. 2. This was a technically good study. 3. The left ventricular size is normal. 4. Left ventricular wall thickness is normal. 5. Overall left ventricular systolic function is normal with, an EF between 55 - 60 %. 6. Normal LA size by volume 22+/-6 ml/m2. 7. Aortic valve is trileaflet and is mildly thickened. 8. There is [id number] aortic regurgitation. 9. The mitral valve leaflets are mildly thickened. 10. There is trace to mild mitral regurgitation. 11. Trace tricuspid regurgitation present. 12. Right ventricular systolic pressure is normal at < 35 mmHg. 13. There is no evidence of pulmonary hypertension. 14. The pulmonic valve was not well visualized. 15. The aortic root size is normal. 16. There is no pericardial effusion. SALES MARKETING MANAGER: Sam Donovan RDCS
[2018-04-24] MEDS: ATORVASTATIN 40 MG TAB PO SCH (20:00)
--- NOTE | 2018-04-24 21:21 | PN ---
PROGRESS NOTE DATE OF SERVICE: 04/24/2018. PRESENTING COMPLAINT: Left arm weakness. INTERVAL HISTORY: This is a patient with left arm weakness. Initially felt it could be a median nerve distribution, now it looks like a stroke given the MRI findings. The patient's left arm is still weak. No other new issues. The patient's daughter is present. REVIEW OF SYSTEMS: Done for constitutional, cardiovascular, GI, pulmonary, neuro; relevant findings as above. CURRENT MEDICATIONS: Reviewed. EXAMINATION: Temperature 98, pulse 60, respiratory rate 18, blood pressure 135/72, pulse ox 93% on room. GENERAL APPEARANCE: Sitting up comfortable. EYES: Pupils equal. Conjunctivae normal. HEENT: External appearance of nose and ears normal. Oral cavity normal. NECK: JVD not raised. Mass not palpable. Respiratory effort normal. LUNGS: Clear. CARDIOVASCULAR: 1st and 2nd heart sounds normal. No edema. ABDOMEN: Soft, nontender. Liver and spleen not palpable. PSYCHIATRY: Alert and oriented x3. Mood and affect normal. NEUROLOGIC: Unchanged. INVESTIGATIONS: LDL 154. 2D echocardiogram, EF 55% to 60%. No thrombus reported. MRI of the brain, multifocal areas involving acute infarct, high right frontal lobe. ASSESSMENT: 1. Acute stroke with areas of multiple lacunar infarct in the right frontal lobe in a right-handed patient. Need to rule out embolic source from cardiac. 2. Hyperlipidemia, uncontrolled. 3. Essential hypertension, controlled on presentation. 4. Chronic bilateral Mitchell's palsy. 5. Psoriasis. PLAN: Care was discussed with the patient and daughter at the bedside. Have ordered a YOSEF with Cardiology. Did try to reinforce the importance of getting this done as patient wanted to go home. Will follow. MMODL / IJN: [id number] /
[2018-04-25] MEDS: HEPARIN SODIUM,PORCINE 5,000 UNIT/ML 1 ML VIAL SQ SCH ×3 (00:44→15:27)
[2018-04-25] MEDS: ASPIRIN 81 MG PO SCH (09:07)
[2018-04-25] MEDS: CHLORTHALIDONE 25 MG TAB PO SCH (09:07)
[2018-04-25] MEDS: LOSARTAN 50 MG TAB PO SCH (09:08)
[2018-04-25] MEDS: BENZOCAINE SPRAY 1 CAN MUCOUS MEM ONE ×2 (10:26→10:37)
[2018-04-25] MEDS ORDERED: SODIUM CHLORIDE 0.9% 500 ML IV ONE (10:28)
[2018-04-25] MEDS ORDERED: fentaNYL (PF) 50 MCG/ML 2 ML AMP IV ONE (10:45)
[2018-04-25] MEDS ORDERED: MIDAZOLAM 2 MG/2 ML VIAL IV ONE (10:45)
--- NOTE | 2018-04-25 11:37 | ECHOT ---
TRANSESOPHAGEAL ECHOCARDIOGRAM DATE OF SERVICE: 04/25/2018 PERFORMING PHYSICIAN: Ed Marcus MD, Sports Announcer. PROCEDURE PERFORMED: Transesophageal echocardiogram. INDICATION: This is a pleasant 72-year-old female patient who was admitted recently to the hospital with a stroke. The YOSEF was requested to rule out any cardiac source of embolization. COMPLICATION: None. LEVEL OF SEDATION: Moderate with sedation length about 10 minutes. PROCEDURE DESCRIPTION: After obtaining an informed consent, explaining the procedure, benefits, risks, complications and alternatives, the patient was brought to the transesophageal echocardiogram suite. A pulse oximetry and heart rate monitors were attached to the patient prior to the procedure. The patient's throat was sprayed using lidocaine locally. Following that, the patient was turned into left lateral position. A bite guard was placed and the patient was then sedated with the above doses of Versed and fentanyl in divided doses. Following that, the transesophageal echocardiogram probe was advanced through the bite guard into the mid esophagus where 2-D echocardiogram images as well as color Doppler images of various cardiac structures were obtained. We evaluated the interatrial septum using 2-D echocardiogram, color Doppler, and contrast study. The procedure was completed. There were no complications. FINDINGS: The left ventricular dimension and systolic function appeared to be within normal limits with an ejection fraction of 55% with mild LVH. The right ventricle is of normal size and function. The left atrium appeared to be mildly dilated. The left atrial appendage appeared to be free from any thrombus. The interatrial septum appeared to be aneurysmal with evidence of patent bolden ovale and [id number]-[id number] shunt seen. The aortic valve is trileaflet valve with evidence of moderate aortic insufficiency with the mitral valve seems to be also thickened with moderate MR. Normal tricuspid valve and pulmonic valve seen. CONCLUSION: 1. 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 2. Normal left atrial appendage without any evidence of thrombus. 3. Normal left ventricular dimension and systolic function. 4. Normal right ventricular dimension and systolic function. 5. Aortic sclerosis without stenosis with moderate insufficiency. 6. Thickened mitral valve leaflets with moderate mitral regurgitation. 7. Normal tricuspid valve and pulmonic valve. 8. Normal aortic root dimension. 9. No evidence of pericardial effusion. MMODL / IJN: [id number] /
[2018-04-25 13:35] VITALS: RESP 18
[2018-04-25] MEDS: ATORVASTATIN 40 MG TAB PO SCH (20:20)
[2018-04-25] MEDS ORDERED: HEPARIN SODIUM,PORCINE 5,000 UNIT/ML 1 ML VIAL ONE (23:30)
--- NOTE | 2018-04-26 01:16 | PN ---
PROGRESS NOTE DATE OF SERVICE: 04/25/2018 PRESENTING COMPLAINT: Left arm weakness. INTERVAL HISTORY: This patient presented with multiple lacunar infarcts. Patient did undergo YOSEF today that confirmed patent foramen ovale with iwgzr-ic-pndx shunt. Patient's friend is present. Patient informed me that Dr. Marcus is going to proceed with a patch closure tomorrow. Patient does have some questions about the same procedure. I did tell her that this will be discussed by Dr. Marcus, as he is the one who will be doing it. Otherwise patient's left arm weakness remains the same. REVIEW OF SYSTEMS: Done for constitutional, cardiovascular, GI, pulmonary; relevant findings as above. CURRENT MEDICATIONS: Reviewed. They include aspirin and Lipitor. PHYSICAL EXAMINATION: Temperature 98, pulse 53, respiration 18, blood pressure 105/56, pulse ox 94% on room air. GENERAL APPEARANCE: Sitting up in bed, awake. EYES: Pupils equal. Conjunctivae normal. HEENT: External appearance of nose and ears normal. Oral cavity normal. NECK: JVD not raised. Mass not palpable. RESPIRATORY: Effort normal. Lungs are clear. CARDIOVASCULAR: First and second sounds normal. No edema. ABDOMEN: Soft, non-tender. Liver and spleen not palpable. PSYCHIATRY: Alert and oriented x3. Mood and affect normal. NEUROLOGICAL: Mild weakness in the left arm on the radial side. INVESTIGATIONS: YOSEF results as above. ASSESSMENT: 1. Acute stroke with areas of multiple lacunar infarct in the right frontal lobe in a right-handed patient, embolic, in a patient with patent foramen ovale. 2. Moderate aortic regurgitation, non-rheumatic, with preserved left ventricular function. 3. Hyperlipidemia, uncontrolled. 4. Essential hypertension, uncontrolled on presentation. 5. Chronic bilateral Mitchell's palsy. 6. Psoriasis. PLAN: Care was discussed with the patient and friend at the bedside. Did speak to Ford, the nurse. He did convey the information to Neurology this morning. Will follow. MMODL / IJN: [id number] /
[2018-04-26] MEDS: HEPARIN SODIUM,PORCINE 5,000 UNIT/ML 1 ML VIAL SQ SCH ×3 (05:22→17:35)
[2018-04-26] MEDS: ASPIRIN 81 MG PO SCH (11:14)
[2018-04-26] MEDS: LOSARTAN 50 MG TAB PO SCH (11:14)
[2018-04-26] MEDS: CHLORTHALIDONE 25 MG TAB PO SCH (11:14)
[2018-04-26 15:09] VITALS: BP 131/65; PULSE 65; TEMP 98
--- NOTE | 2018-04-26 15:14 | P.PN ---
Subjective Progress Note Date: 04/26/18 This is a pleasant 72-year-old female who was recently diagnosed with hypertension on April 01, nicotine dependence, she states she drinks approximately 6-7 alcoholic beverages per week, chronic Mitchell's palsy, psoriasis , hyperlipidemia she states she has been on different cholesterol medications in the past and has not felt well on them so she discontinued them, she also has a strong family history of strokes. Cording to the patient, she was holding a calculator in her left hand when it all of a sudden dropped out of her hand, she was unable to use the fingers of her hand. She states that her arm did not have significant weakness it was primarily in her hand. She also then stated that she went to look in a mere to see if she had any facial drooping out of the norm for her, she did not notice any change but came to the emergency room for further evaluation. Blood pressure on arrival to the emergency room to 22/80 with a heart rate in the 70s, 97% on room air. Current blood pressure today 125/80 with a heart rate in the 60s, 94% on room air. She' ll CAT scan of the brain revealed mild atrophy with no acute intracranial abnormality. Chest x-ray showed some COPD but no active cardiopulmonary disease. CT angiography did not reveal any intracranial abnormality. Atherosclerotic plaque at the carotid artery bifurcation 60% stenosis on the right side at the origin internal carotid artery and 30% on the left. MRI of the brain showed multifocal areas of resolving acute lacunar infarction high right frontal lobe. Mild diffuse cerebral atrophy most prominent over the bilateral frontal lobes and mild to moderate chronic small vessel ischemic change noted. EKG shows normal sinus rhythm with no acute changes. Blood cell count is normal, hemoglobin 15.6, hematocrit 48.4, platelet count 197. Sodium 143, potassium 4.4, BUN 19, creatinine 0.9. Troponin 0.012. Cholesterol 249, LDL 154, HDL 67, homocysteine 14.46. At the time of my examination, patient still cannot completely use her first 2 fingers on the left hand. Otherwise, no neural deficits were noted. No echocardiogram with Doppler study was performed. Cardiology was requested to see the patient for YOSEF. The procedure as well as risks and benefits of the YOSEF were explained to the patient in detail. This will be performed tomorrow by Dr. Smith. 04/26/2018 Patient underwent a YOSEF yesterday by Dr. Smith which revealed aneurysmal intra- atrial septum with evidence of patent foramen ovale and right to left shunt. Normal left atrial appendage without any evidence of thrombus, normal left ventricular dimension and systolic function. Normal right ventricular dimension and systolic function. Aortic sclerosis without stenosis with moderate insufficiency. Thickened mitral valve leaflets with moderate MR. Normal tricuspid and pulmonic valve. Normal aortic root dimension. No evidence of pericardial effusion. Because of these findings, patient has been recommended to undergo PFO closure. Patient was seen and examined this morning , overall doing well. She's been up ambulating in the hallway today without any difficulty. Hemodynamically she is stable. Blood Pressure 126/50 with a heart rate in the 50s, 97% on room air. Objective - Vital Signs Vital signs: Vital Signs Temp 97.9 F 04/26/18 08:00 Pulse 59 L 04/26/18 08:00 Resp 18 04/26/18 08:00 BP 127/50 04/26/18 08:00 Pulse Ox 97 04/26/18 08:00 Intake & Output 04/25/18 04/26/18 04/26/18 18:59 06:59 18:59 Intake Total 330 10 Balance 330 10 Weight 60.3 kg Intake: IV 150 10 0.9 10 Oral 180 Other: Voiding Method Toilet Toilet # Voids 2 2 # Bowel Movements 0 - Exam PHYSICAL EXAMINATION: GENERAL: 72-year-old female in no acute distress at the time of my examination HEENT: Head is atraumatic, normocephalic. Pupils equal, round. Sclera anicteric. Conjunctiva are clear. Mucous membranes of the mouth are moist. Neck is supple. There is no elevated jugular venous pressure.] bruit is heard. HEART EXAMINATION: Heart S1, S2 normal. No murmur or gallop heard. CHEST EXAMINATION: Lungs are clear to auscultation and precussion. No chest wall tenderness is noted on palpation or with deep breathing. ABDOMEN: Soft, nontender. Bowel sounds are heard. No organomegaly noted. EXTREMITIES: 2+ peripheral pulses with no evidence of peripheral edema and no calf tenderness noted. NEUROLOGIC patient is awake, alert and oriented OX3. Mild neurology professor weakness on the left. - Labs CBC & Chem 7: 04/21/18 20:20 04/21/18 20:20 Assessment and Plan Plan: Assessment and plan #1 acute lacunar infarct in the high right frontal lobe #2 hypertensive urgency #3 nicotine dependence #4 family history of strokes #5 hyperlipidemia, untreated #6 chronic Mitchell's palsy Plan Status post transesophageal echocardiographic study which revealed aneurysmal intra-atrial septum with evidence of patent foramen ovale and right to left shunt. From cardiology's perspective, patient may be able to be discharged home today. We will make her a follow-up appointment in the office with Dr. Smith on Tuesday. She will be scheduled as an outpatient to undergo PFO closure. DNP note has been reviewed, I agree with a documented findings and plan of care. Patient was seen and examined.
[2018-04-26] MEDS ORDERED: CLOPIDOGREL 75 MG TAB PO STA (16:57)
--- NOTE | 2018-04-27 07:14 | DS ---
DISCHARGE SUMMARY DATE OF ADMISSION: 04/21/18 DATE OF DISCHARGE: 04/26/18. FINAL DIAGNOSES: 1. Acute lacunar strokes in the frontal lobe in a right-handed patient, possibly embolic shower from patent foramen ovale. 2. Large patent foramen ovale. 3. Moderate aortic regurgitation, nonrheumatic. 4. Hyperlipidemia uncontrolled. 5. Essential hypertension uncontrolled on presentation. 6. Chronic bilateral Mitchell's palsy. 7. Psoriasis. HOSPITAL COURSE: This patient presented with acute weakness of the left arm. Initially felt to be median problem, but MRI showed multiple lacunar infarct especially in the frontal lobe. As a result YOSEF was carried out that showed a large PFO. I spoke to Dr. Marcus today. Pros and cons were discussed. At this point patient is being discharged on aspirin and Plavix. This was also discussed with the patient versus anticoagulation. The patient will be coming back on Tuesday to see Dr. Marcus in the office and then he will schedule the patient on Tuesday for the procedure. On examination: Minimal left arm weakness. Care was discussed in detail with the patient. Questions were answered. Especially I did tell her the choice of going on aspirin and Plavix. The patient is MRI of the brain results were as above. CONSULTATIONS: 1. Dr. Mcbride who okayed the patient to be discharged. 2. Dr. Marcus okayed the patient to be discharged. DISCHARGE MEDICATIONS: 1. Losartan 50 mg p.o. daily. 2. Aspirin 81 mg p.o. daily. 3. Lipitor 40 mg q.h.s. 4. Chlorthalidone 25 mg p.o. daily. 5. Plavix 75 mg p.o. daily. Follow with Dr. Marcus on 05/01/18, Dr. Mcbride in 1 week, Dr. Emmanuel Londono on 04/28/18. Patient's procedure scheduled for next Tuesday. Discussion and discharge planning more than 35 minutes. MMODL / IJN: [id number] /
== END 2018-04-26 17:44 | disposition home or self-care (01) | DRG 65 ==
LOC: EC 19:59 → 6SEL 21:46 → OBSVTOIN 04-24 15:51
PROVIDERS: ADMIT Hospitalist; ATTEND Hospitalist
PROC: B24BZZ4 Ultrasonography of Heart with Aorta, Transesophageal (ICD-10-PCS; principal; 2018-04-25 12:00)
DX: I63.421 Cerebral infarction due to embolism of right anterior cerebral artery (principal); Q21.1 Atrial septal defect; G83.24 Monoplegia of upper limb affecting left nondominant side; R29.701 NIHSS score 1; E78.5 Hyperlipidemia, unspecified; F17.210 Nicotine dependence, cigarettes, uncomplicated; G51.0 Bell's palsy; I10 Essential (primary) hypertension; I16.0 Hypertensive urgency; I35.1 Nonrheumatic aortic (valve) insufficiency; I70.0 Atherosclerosis of aorta; J44.9 Chronic obstructive pulmonary disease, unspecified; L40.9 Psoriasis, unspecified; K27.9 Peptic ulcer, site unspecified, unspecified as acute or chronic, without hemorrhage or perforation; I65.23 Occlusion and stenosis of bilateral carotid arteries; Z88.8 Allergy status to other drugs, medicaments and biological substances; Z79.899 Other long term (current) drug therapy; Z82.3 Family history of stroke
CPT/HCPCS: 36415; 70450; 70496; 70498; 70551; 71046; 80053; 80061; 82550; 82553; 83090; 84484; 85025; 85610; 85730; 93005; 93306; 93312; 93320; 93325; 94760; 99285

== ENCOUNTER 2018-05-03 07:50 | Day surgery (SDC) | payer MEDICARE, OTHER ==
[~2018-05-03 07:50] MED LIST: ALPRAZolam 0.25 MG TAB PO PRN; ALPRAZolam 0.5 MG TAB PO PRN; ASPIRIN 325 MG TAB PO STA; NITROGLYCERIN SL TABS 0.4 MG TAB SUBLINGUAL PRN; SODIUM CHLORIDE 0.9% 1,000 ML in EMPTY BAG 1 BAG IV ONE
[2018-05-03] MEDS ORDERED: ceFAZolin IN SWFI 2 GM/20 ML SYRINGE IVP ONE (08:00)
[2018-05-03] MEDS ORDERED: SODIUM CHLORIDE 0.9% 1,000 ML IV ONE (08:06)
[2018-05-03] MEDS ORDERED: MIDAZOLAM 2 MG/2 ML VIAL IVP ONE (09:20)
[2018-05-03] MEDS ORDERED: LIDOCAINE 1% INJ 10MG/ML (20 ML MDV) SQ ONE (09:23)
[2018-05-03] MEDS ORDERED: HEPARIN SODIUM 1,000 UN/ML (10ML VL) IV ONE (09:33)
[2018-05-03] MEDS ORDERED: CLOPIDOGREL 75 MG TAB PO ONE (09:58)
[2018-05-03] MEDS ORDERED: SODIUM CHLORIDE 0.9% 1,000 ML IV SCH (10:00)
[2018-05-03] MEDS ORDERED: SODIUM CHLORIDE 0.9% 500 ML IV ONE (10:15)
--- NOTE | 2018-05-03 11:24 | LTR ---
May 03, 2018 Re: Loree Limonne Dear Dr. Londono: Ms. Karon Limon underwent successful percutaneous closure of patent bolden ovale using Amplatzer device with good results and without any residual shunt by the end of the procedure. I want to thank you for allowing me to participate in her care and please do not hesitate to call if you have any question or concern. Sincerely, MD LAURA Kaminski / ELENAN: [id number] /
--- NOTE | 2018-05-03 11:30 | CA ---
CARDIOLOGY REPORT STRUCTURAL HEART DISEASE REPORT DATE OF SERVICE: 05/03/2018 PERFORMING PHYSICIAN: Ed Marcus MD, driver trainee. PROCEDURE PERFORMED: 1. Intracardiac echocardiogram, ICE. 2. Successful percutaneous closure of patent bolden ovale using 25 mm Amplatzer PFO occluder with good results. INDICATION: This is a pleasant 72-year-old female patient who was admitted to the hospital a few weeks ago with stroke. She underwent a YOSEF and that revealed patent bolden ovale with evidence of kuhpk-in-cbif shunt. COMPLICATION: None. LEVEL OF SEDATION: Moderate with sedation length of 29 minutes. APPROACH: Right common femoral vein. PROCEDURE DESCRIPTION: After obtaining an informed consent, the patient was brought to the cardiac greens laborer. The right common femoral vein was cannulated x2 using micropuncture technique, the micropuncture wire passed easily then I placed a English sheath in the right common femoral vein. At that point, anticoagulation was initiated using heparin and the patient was given a weight-based heparin with 7000 units. Subsequently I did advance the ICE probe under fluoroscopy guidance to the right atrium where we did intracardiac echocardiogram images and I did interrogate the interatrial septum and did measure the diameter of the patent bolden ovale. Subsequently I did cross the patent bolden ovale using J-wire with multipurpose catheter. The multipurpose catheter was advanced to the left upper pulmonary vein. I did exchange the J-wire into a stiffer wire with Amplatzer wire. Then I took the multipurpose catheter out. Subsequently I did advance the long Amplatzer sheath all the way over the Amplatzer wire to the left atrium. After that, I did advance the Amplatzer PFO occluder through the sheath where I did deploy initially the left atrial disc first and then the right atrial disc. After multiple interrogations, I did release the device. No evidence of residual shunt seen. After that, I did exchange my long sheath into short sheath. The procedure was completed without any complication. POSTPROCEDURE MANAGEMENT: 1. Dual antiplatelet therapy. 2. Risk factor modifications. 3. Follow up with the patient. MMODL / IJN: [id number] /
[2018-05-03 17:34] VITALS: BMI 20.9
[2018-05-03] MEDS ORDERED: ATORVASTATIN 40 MG TAB PO SCH (21:00)
--- NOTE | 2018-05-04 08:31 | XR ---
EXAMINATION TYPE: XR chest 2V DATE OF EXAM: 05/04/2018 COMPARISON: Prior chest 04/21/2018 HISTORY: Cerebral vascular accident, atrial septal defect, patent foramen Ovale placement TECHNIQUE: Frontal and lateral views of the chest are obtained. FINDINGS: There is no focal air space opacity, pleural effusion, or pneumothorax seen. The cardiac silhouette size is within normal limits. The osseous structures are intact. Interval placement of s eptal defect occlusion device seen within the heart. There are overlying cardiac leads. IMPRESSION: No acute cardiopulmonary process.
[2018-05-04] MEDS ORDERED: CHLORTHALIDONE 25 MG TAB PO SCH (09:00)
[2018-05-04] MEDS ORDERED: ASPIRIN 325 MG TAB PO SCH (09:00)
[2018-05-04] MEDS ORDERED: LOSARTAN 25 MG TAB PO SCH (09:00)
[2018-05-04] MEDS ORDERED: CLOPIDOGREL 75 MG TAB PO SCH (09:00)
[2018-05-04 11:13] LABS: Basophils % (A) 1 %; Eosinophils # (A) 0.1 k/uL (0-0.7); Eosinophils % (A) 2 %; HCT 41.7 % (34.0-46.0); HGB 13.9 gm/dL (11.4-16.0); Lymphocytes % (A) 15 %; MCH 29.9 pg (25.0-35.0); MCHC 33.4 g/dL (31.0-37.0); MCV 89.6 fL (80.0-100.0); Monocytes # (A) 0.5 k/uL (0-1.0); Monocytes % (A) 8 %; Neutrophils # (A) 4.4 k/uL (1.3-7.7); Neutrophils % (A) 71 %; Platelet Count 191 k/uL (150-450); RBC 4.65 m/uL (3.80-5.40); RDW 12.2 % (11.5-15.5); WBC 6.2 k/uL (3.8-10.6)
[2018-05-04 11:19] LABS: Calcium 9.1 mg/dL (8.4-10.2)
--- NOTE | 2018-05-04 12:13 | P.DS ---
Providers Date of admission: 05/03/2018 Attending physician: Ed Marcus Primary care physician: [facility] Course: This is a pleasant 72-year-old female patient who was admitted to the hospital yesterday and underwent successful percutaneous closure of patent foramen ovale using 25 mm Amplatzer PFO occluder with a good results 25 AM and without any residual, across the interatrial septum. On follow-up with the patient today, she is doing good and she is asymptomatic. The right groin is soft and nontender and without any bruises. The echocardiogram showed no evidence of pericardial effusion. From the cardiovascular standpoint overview, the patient can be discharged home. Plan - Discharge Summary Discharge Rx Participant: Yes New Discharge Prescriptions: Continue Losartan Potassium 25 mg PO DAILY Aspirin 81 mg PO DAILY chew Atorvastatin [Lipitor] 40 mg PO HS #30 tab Clopidogrel Bisulfate [Plavix] 75 mg PO DAILY #30 tab Chlorthalidone [Hygroton] 25 mg PO DAILY Discharge Medication List Losartan Potassium 25 mg PO DAILY 04/21/18 [History] Aspirin 81 mg PO DAILY chew 04/26/18 [Rx] Atorvastatin [Lipitor] 40 mg PO HS #30 tab 04/26/18 [Rx] Clopidogrel Bisulfate [Plavix] 75 mg PO DAILY #30 tab 04/26/18 [Rx] Chlorthalidone [Hygroton] 25 mg PO DAILY 05/02/18 [History] Follow up Appointment(s)/Referral(s): Ed Marcus MD [STAFF PHYSICIAN] - 1 Week (Please take note of following appointments: April 12 at 4:30 PM June 02 at 3:00 PM November 03 at 2:00 PM May 03, 2019 at 11:00 AM.) Patient Instructions/Handouts: Safe Use of Antiplatelet Medication (DC) Activity/Diet/Wound Care/Special Instructions: Avoid driving until May 07. Do not lift anything greater than 10 pounds for one week. Shower daily, do not soak in a bathtub/pool/calvert etc for one week. Notify production metal sprayer with any signs of bleeding/drainage/swelling/redness occurs around puncture site. You will need to take aspirin and clopidogrel to prevent blood clots from forming. (Do not stop taking these medications unless directed by your physician ). Call 911 immediately if any severe chest pain/discomfort occurs.
[2018-05-04 12:51] VITALS: BP 138/67; PULSE 69; RESP 18; TEMP 97.1
== END 2018-05-04 13:12 | disposition home or self-care (01) ==
LOC: CATHCVL 07:50 → 6SEL 09:52 → CATHCVL 05-04 13:12
PROVIDERS: ATTEND Internal Medicine Interventional Cardiology
DX: Q21.1 Atrial septal defect (principal); I10 Essential (primary) hypertension; G51.0 Bell's palsy; E78.5 Hyperlipidemia, unspecified; I16.0 Hypertensive urgency; F17.200 Nicotine dependence, unspecified, uncomplicated; Z86.73 Personal history of transient ischemic attack (TIA), and cerebral infarction without residual deficits; Z82.3 Family history of stroke; Z79.899 Other long term (current) drug therapy; Z79.82 Long term (current) use of aspirin; Z79.02 Long term (current) use of antithrombotics/antiplatelets; Z88.8 Allergy status to other drugs, medicaments and biological substances
CPT/HCPCS: 93308; 93581; 85347; 86900; 86901; 80048; 85025; 86850; 71046; C1769 ×5; C1894; C1817; C1759; J2250; J2001; J1644; J0690

== ENCOUNTER → 2019-05-23 | Outpatient (CLI) | payer MEDICARE ==
--- NOTE | 2019-05-24 06:52 | US ---
EXAMINATION TYPE: US carotid duplex BILAT DATE OF EXAM: 05/23/2019 COMPARISON: CTA head and neck April 21, 2018 CLINICAL HISTORY: [id number] UVEITIS. Vision changes EXAM MEASUREMENTS: RIGHT: Peak Systolic Velocity (PSV) cm/sec ----- Right CCA: 64.4 ----- Right ICA: 473 ----- Right ECA: 235 ICA/CCA ratio: 7.4 Left CCA: 76.1 . ----- Left ICA: 145.0 ----- Left ECA: 130 ICA/CCA ratio: 1.55 LEFT: End Diastole cm/sec ----- Left CCA: 18.7 ----- Left ICA: 35.8. ----- Left ECA: VERTEBRALS (direction of flow): Right Vertebral: Antegrade Left Vertebral: Antegrade Rhythm: Normal Severe plaque seen in right bulb and proximal ICA ratio is suggestive of high grade stenosis. Left ICA shows moderate plaque with small velocity increase. There is redemonstration of severe shadowing plaque at right carotid bulb level with elevated peak sy stolic and end-diastolic velocities right internal or external carotid artery. There is abnormal rati o. Left side shows more moderate to severe eccentric plaque with increased peak systolic velocity. IMPRESSION: Persistent moderate to severe atherosclerotic change bilaterally greater on the right si de with stenosis now estimated at greater than 70% on the right and 50-69% on the left. Suspect inter eduarda progression from prior CTA neck study. Further investigation with direct catheter angiogram shoul d be considered. Criteria for Assigning % of Stenosis / Diameter reduction (Estimation based on the indirect measurements of the internal carotid artery velocities (ICA PSV). 1. Normal (no stenosis)=ICA PSV < 125 cm/s: ratio < 2.0: ICA EDV<40 cm/s. 2. Less than 50% stenosis=ICA PSV < 125 cm/s: ratio < 2.0: ICA EDV<40 cm/s. 3. 50 to 69% stenosis=ICA PSV of 125 to 230 cm/s: ration 2.0 ? 4.0: ICA EDV 40-100 cm/s. 4. Greater than 70% stenosis to near occlusion= ICA PSV > 230 cm/s: ratio > 4.0: ICA EDV > 100 cm/s. 5. Near occlusion= ICA PSV velocities may be low or undetectable: variable ratio and ICA EDV. 6. Total occlusion=unable to detect flow.
== END | disposition home or self-care (01) ==
LOC: RADUSWWP 16:49
PROVIDERS: ATTEND Ophthalmology
DX: I65.23 Occlusion and stenosis of bilateral carotid arteries (principal)
CPT/HCPCS: 85652; 93880

== ENCOUNTER → 2019-07-12 | Outpatient (CLI) | payer MEDICARE ==
--- NOTE | 2019-07-12 15:38 | CT ---
EXAMINATION TYPE: CT angio neck DATE OF EXAM: 07/12/2019 HISTORY: Hypertension COMPARISON: Ultrasound carotid Doppler ultrasound of 05/23/2019 CT DLP: 215 mGycm. Automated Exposure Control for Dose Reduction was Utilized. TECHNIQUE: CTA scan of the neck is performed with IV Contrast, patient injected with 65 mL of Isovue 370, axial images are obtained, coronal and sagittal reformatted images are reviewed. Three-D recons tructed images are created on an independent workstation and reviewed. Source images are reviewed. FINDINGS: Carotid/Vascular Structures: There is a three-vessel arch. Carotid arteries: Atheromatous plaque is present at the bilateral carotid bifurcations. This has mode rate narrowing between 50 and 69% on the left. There is a focal severe stenosis within the right prox imal internal carotid artery due to atheromatous plaquing greater than 70%. On the reconstructed imag es a ulceration within the plaque cannot be excluded. IMPRESSION: 1. Severe flow-limiting stenosis right internal carotid artery origin measuring greater than 70%. Ulc eration is not excluded within the plaque. 2. Moderate narrowing within the left internal carotid artery origin 50-69%. Correlate with patient's clinical symptoms.
== END | disposition home or self-care (01) ==
LOC: RADCTMAIN 08:27
PROVIDERS: ATTEND Internal Medicine Interventional Cardiology
DX: I65.21 Occlusion and stenosis of right carotid artery (principal); I10 Essential (primary) hypertension; E78.1 Pure hyperglyceridemia; I34.0 Nonrheumatic mitral (valve) insufficiency
CPT/HCPCS: 82565; 84520; 70498; Q9967

== ENCOUNTER → 2019-08-03 | Outpatient (CLI) | payer MEDICARE ==
[2019-08-03 10:20] LABS: HCT 40.5 % (34.0-46.0); MCH 30.5 pg (25.0-35.0); MCHC 32.1 g/dL (31.0-37.0); Mean Platelet Volume 7.9; Platelet Count 197 k/uL (150-450); RBC 4.26 m/uL (3.80-5.40); RDW 13.3 % (11.5-15.5); WBC 5.6 k/uL (3.8-10.6)
== END | disposition home or self-care (01) ==
LOC: LABPAT 09:29
PROVIDERS: ATTEND Internal Medicine Interventional Cardiology
DX: Z01.812 Encounter for preprocedural laboratory examination (principal); I65.21 Occlusion and stenosis of right carotid artery
CPT/HCPCS: 80051; 82565; 84520; 85027

== ENCOUNTER 2019-08-14 05:43 | Inpatient (IN) | payer MEDICARE ==
[2019-08-09 15:49] VITALS: BMI 20.3
[2019-08-14] MEDS ORDERED: ALPRAZolam 0.5 MG TAB PO PRN (05:58)
[2019-08-14] MEDS ORDERED: SODIUM CHLORIDE 0.9% 1,000 ML in EMPTY BAG 1 BAG IV ONE (05:58)
[2019-08-14] MEDS ORDERED: ALPRAZolam 0.25 MG TAB PO PRN (05:58)
[2019-08-14] MEDS ORDERED: NITROGLYCERIN SL TABS 0.4 MG TAB SUBLINGUAL PRN (05:58)
[2019-08-14] MEDS ORDERED: CLOPIDOGREL 75 MG TAB PO ONE ×2 (07:00→09:13)
[2019-08-14] MEDS ORDERED: ASPIRIN 325 MG TAB PO ONE (07:00)
[2019-08-14] MEDS ORDERED: LIDOCAINE 1% INJ 10MG/ML (20 ML MDV) SQ ONE (08:01)
[2019-08-14] MEDS: HEPARIN SODIUM 1,000 UN/ML (10ML VL) IV ONE ×2 (08:09→08:52)
[2019-08-14] MEDS ORDERED: IOPAMIDOL-370 100ML BTL INJ ONE ×2 (09:13→09:14)
[2019-08-14] MEDS ORDERED: MAG HYDROX/AL HYDROX/SIMETH 30 ML CUP PO PRN (09:28)
[2019-08-14] MEDS ORDERED: RX INFO: IV CONTRAST WAS GIVEN 1 EACH MISC MISCELLANE PRN (09:28)
[2019-08-14] MEDS ORDERED: ATROPINE SULFATE 0.1 MG/ML 10ML SYRINGE IV PRN (09:28)
[2019-08-14] MEDS ORDERED: SODIUM CHLORIDE 0.9% 1,000 ML IV SCH (09:30)
[2019-08-14 09:37] LABS: Glucose,Whole Blood 97 mg/dL (75-99)
--- NOTE | 2019-08-14 09:43 | P.PCN ---
Date of Procedure: 08/14/19 Operative Findings: CAROTID STENTING PROCEDURE Performing physician: Ed Marcus M.D. Procedure performed: 1. An aortic arch angiogram 2. Selective right common and internal carotid artery angiogram 3. Selective right vertebral artery angiogram 4. Successful stenting of the right internal carotid artery using 86 mm x 30 mm Xact stent with adjunctive use of Embosheild NOEMY distal protection filter with an excellent angiographic results and reduction of stenosis from 80% to 0% and without any complication Indication: This is a 74-year-old female patient with history of hypertension and dyslipidemia and prior history of stroke who was diagnosed recently with severe disease involving the right internal carotid artery with an ulcerated plaque. That was confirmed by a CTA. Because of that she was brought today to undergo stenting of the right internal carotid artery. Approach: Right common femoral artery. Complication: None Level of sedation: The patient was not given any sedation during the procedure. The procedure length is 70 minutes Procedure description: After obtaining an informed consent the patient was brought to the cardiac laborer/key man. The right common femoral artery was cannulated using micropuncture technique, the micropuncture wire passed easily then I placed an 11 cm 6-Swedish sheath in the right common femoral artery. Subsequently anticoagulation was initiated using heparin were the patient was initially given 6000 as of heparin at the beginning of the procedure and additional 3000 throughout the procedure. ACT monitoring throughout the procedure performed. After that I did an aortic arch angiogram using a 6-Swedish pigtail catheter with a hand injection. That revealed2 to 3 aortic arch. The arch was calcified but not extremely calcified. Subsequently I did selective the innominate artery using a JB2 catheter. Subsequently I did do wire the right common carotid artery using a glide advantage wire. At that point I did exchange my 11 cm 6-Swedish sheath into a 90 cm 6-Swedish shuttle sheath using the glide advantage wire and using a JB2 catheter as a dilator of the sheath for better support in view of the type 2-3 aortic arch. Subsequently I did selective right common and internal carotid artery angiogram which revealed an ulcerated plaque involving the proximal right internal carotid artery. The sheath was initially in the right vertebral artery were I did selective right vertebral artery angiogram. Subsequently I did advance the Embosheild NOEMY filter wire across the lesion in the right internal carotid artery were the filter was deployed under fluoroscopy guidance. The filter was positioned distal to that lesion. After that I did predilatation of the lesion using 4 mm x 20 mm balloon which was inflated quickly under 8 santiago for less than 5 seconds. Subsequently I deployed Xact carotid stent which was 86 x 30 mm which was advanced over the filter wire and positioned in the right internal carotid artery under fluoroscopy guidance before it was deployed under fluoroscopy guidance. Postdilatation was performed using 5 mm x 20 mm balloon. The balloon was inflated under 8 santiago for 5 seconds. No bradycardia noted. The following angiogram showed an excellent angiographic results. After that I did exchange my shuttle sheath into an 11 cm 6-Swedish sheath before I did selective right common femoral artery angiogram before I closed the groin using the Perclose device. The procedure was completed without any complication. Postprocedure management: 1. Dual antiplatelet therapy 2. Risk factors modifications 3. ICU admission 4. Monitor the blood pressure and heart rate 5. Follow-up with the patient
--- NOTE | 2019-08-14 15:41 | IR ---
EXAMINATION TYPE: IR stent intravas non coronary DATE OF EXAM: 08/14/2019 COMPARISON: NONE HISTORY: Fluoroscopy time. Fluoroscopy was provided to the referring clinician.
[2019-08-14] MEDS ORDERED: ATORVASTATIN 40 MG TAB PO SCH ×2 (21:00)
[2019-08-15 05:15] LABS: Basophils % (A) 1 %; Eosinophils # (A) 0.1 k/uL (0-0.7); Eosinophils % (A) 3 %; HCT 36.1 % (34.0-46.0); HGB 11.4 gm/dL (11.4-16.0); Lymphocytes # (A) 0.7 k/uL (1.0-4.8); Lymphocytes % (A) 13 %; MCH 29.5 pg (25.0-35.0); MCHC 31.7 g/dL (31.0-37.0); Mean Platelet Volume 7.6; Monocytes # (A) 0.4 k/uL (0-1.0); Monocytes % (A) 7 %; Neutrophils # (A) 3.9 k/uL (1.3-7.7); Neutrophils % (A) 74 %; Platelet Count 187 k/uL (150-450); RBC 3.88 m/uL (3.80-5.40); WBC 5.2 k/uL (3.8-10.6)
[2019-08-15 05:23] LABS: Potassium 3.4 mmol/L (3.5-5.1)
[2019-08-15] MEDS ORDERED: Potassium Replacement Protocol 1 EACH MISC MISCELLANE PRN (05:29)
[2019-08-15] MEDS: POTASSIUM CHLORIDE ER 20 MEQ TAB.ER PO SCH (06:56)
[2019-08-15 08:04] VITALS: TEMP 98.2
[2019-08-15] MEDS ORDERED: LOSARTAN 25 MG TAB PO SCH (09:00)
[2019-08-15] MEDS ORDERED: CLOPIDOGREL 75 MG TAB PO SCH (09:00)
[2019-08-15] MEDS ORDERED: ASPIRIN 81 MG PO SCH (09:00)
[2019-08-15] MEDS ORDERED: CHLORTHALIDONE 25 MG TAB PO SCH (09:00)
[2019-08-15] MEDS ORDERED: CHOLECALCIFEROL 1,000 UNIT TAB PO SCH (09:00)
[2019-08-15] MEDS ORDERED: ASPIRIN 325 MG TAB PO SCH (09:00)
[2019-08-15 10:08] VITALS: BP 119/45; PULSE 66; RESP 14
--- NOTE | 2019-08-15 11:10 | P.DS ---
Providers Date of admission: 08/14/19 05:43 Attending physician: Ed Marcus Consults: 08/14/19 09:28 Consult Physician Routine Consulting Provider: Ed Marcus Consult Reason/Comments: Post Interventional patient Do you want consulting provider notified?: Already Contacted Primary care physician: Emmanuel Kent Hospital Course: This is a very pleasant 74-year-old female patient who was admitted to the [facility] yesterday and underwent successful stenting of the right internal carotid artery with an excellent angiographic results and reduction of stenosis from 80% to 0%. On follow-up with her today, she is doing good and she is asymptomatic. The right groin is soft and nontender and without any bruises. The patient is going to discharge home on dual antiplatelet therapy as well as a statin and I will follow-up with the patient next week in the office. Plan - Discharge Summary Discharge Rx Participant: No New Discharge Prescriptions: New Clopidogrel [Plavix] 75 mg PO DAILY #90 tab Continue Losartan Potassium 25 mg PO DAILY Aspirin 81 mg PO DAILY chew Atorvastatin [Lipitor] 40 mg PO HS #30 tab Chlorthalidone [Hygroton] 25 mg PO DAILY Cholecalciferol (Vitamin D3) [Vitamin D3] 2,000 unit PO DAILY Discharge Medication List Losartan Potassium 25 mg PO DAILY 04/21/18 [History] Aspirin 81 mg PO DAILY chew 04/26/18 [Rx] Atorvastatin [Lipitor] 40 mg PO HS #30 tab 04/26/18 [Rx] Chlorthalidone [Hygroton] 25 mg PO DAILY 05/02/18 [History] Cholecalciferol (Vitamin D3) [Vitamin D3] 2,000 unit PO DAILY 08/09/19 [History] Clopidogrel [Plavix] 75 mg PO DAILY #90 tab 08/15/19 [Rx] Follow up Appointment(s)/Referral(s): Ed Marcus MD [STAFF PHYSICIAN] - 08/21/19 1:00 pm Patient Instructions/Handouts: Carotid Artery Stent Placement (DC) Discharge Disposition: HOME SELF-CARE
== END 2019-08-15 10:39 | disposition home or self-care (01) | DRG 36 ==
LOC: 2ORMAIN 05:43 → 2SICU 09:09
PROVIDERS: ADMIT Internal Medicine Interventional Cardiology; ATTEND Internal Medicine Interventional Cardiology
PROC: B4101ZZ Fluoroscopy of Abdominal Aorta using Low Osmolar Contrast (ICD-10-PCS; 2019-08-14)
PROC: B31D1ZZ Fluoroscopy of Right Vertebral Artery using Low Osmolar Contrast (ICD-10-PCS; 2019-08-14)
PROC: B3131ZZ Fluoroscopy of Right Common Carotid Artery using Low Osmolar Contrast (ICD-10-PCS; 2019-08-14)
PROC: B3161ZZ Fluoroscopy of Right Internal Carotid Artery using Low Osmolar Contrast (ICD-10-PCS; 2019-08-14)
PROC: 037K34Z Dilation of Right Internal Carotid Artery with Drug-eluting Intraluminal Device, Percutaneous Approach (ICD-10-PCS; principal; 2019-08-14 07:30)
DX: I65.23 Occlusion and stenosis of bilateral carotid arteries (principal); I10 Essential (primary) hypertension; Z87.891 Personal history of nicotine dependence; E78.5 Hyperlipidemia, unspecified; Z86.73 Personal history of transient ischemic attack (TIA), and cerebral infarction without residual deficits; I35.1 Nonrheumatic aortic (valve) insufficiency; Z88.8 Allergy status to other drugs, medicaments and biological substances; Z79.02 Long term (current) use of antithrombotics/antiplatelets; Z79.899 Other long term (current) drug therapy
CPT/HCPCS: 37215; 80048; 84132; 85025; 85347; 86850; 86900; 86901

== ENCOUNTER 2020-08-26 10:36 | Day surgery (SDC) | payer MEDICARE ==
[2020-08-25 10:16] VITALS: BMI 21.9
[~2020-08-26 10:36] MED LIST changes: -ALPRAZolam 0.25 MG TAB PO PRN; -ALPRAZolam 0.5 MG TAB PO PRN; -ASPIRIN 325 MG TAB PO STA; +LACTATED RINGERS 1,000 ML IV SCH; +LIDOCAINE 1% (10MG/ML) FOR IV START INTRADERMA PRN; -NITROGLYCERIN SL TABS 0.4 MG TAB SUBLINGUAL PRN; -SODIUM CHLORIDE 0.9% 1,000 ML in EMPTY BAG 1 BAG IV ONE
[2020-08-26] MEDS ORDERED: LACTATED RINGERS 1,000 ML IV ONE ×2 (11:23)
[2020-08-26 11:24] VITALS: TEMP 98
[2020-08-26] MEDS ORDERED: PROPOFOL 10 MG/ML 20 ML VIAL IV ONE (12:32)
--- NOTE | 2020-08-26 12:54 | P.PCN ---
Date of Procedure: 08/26/20 Description of Procedure: BRIEF HISTORY: Patient is a 75-year-old female presenting for outpatient EGD for evaluation of gastritis. Patient reports a history of a perforated duodenal ulcer 40 years ago. She reports being treated for Helicobacter pylori in the past. Currently she has intermittent episodes of epigastric abdominal pain. She's been started on Protonix therapy.]. PROCEDURE PERFORMED: Esophagogastroduodenoscopy with biopsy. PREOPERATIVE DIAGNOSIS: Gastritis, history of duodenal ulcer. ESTIMATED BLOOD LOSS: Minimal. IV sedation per anesthesia. PROCEDURE: After informed consent was obtained, the patient was brought into the endoscopy unit. IV sedation was administered by Anesthesia under continuous monitoring. Initially the Olympus GIF-190 video endoscope was inserted into the mouth. Esophagus intubated without any difficulty. It was gradually advanced into the stomach and duodenum and carefully examined. The bulb and the second part of the duodenum appeared normal, with biopsies taken to rule out ileus were. The scope at this time was withdrawn to the stomach, adequately insufflated with air, and upon careful examination, mucosa of the antrum, body, cardia and the fundus appeared normal, except for some mild punctate erythema suggestive of mild gastritis with biopsies taken of the antrum and body. The scope was then withdrawn into the esophagus. The GE junction was located at 39 cm from the incisors and biopsied. The esophagus appeared normal. There were no erosions or ulcerations seen and the patient tolerated the procedure well. IMPRESSION: 1. Mild Gastritis. 2. Biopsies of the duodenum, antrum and body and GE junction. RECOMMENDATIONS: The findings of this examination were discussed with the patient and her . Okay to resume diet. Okay to resume medications today and Plavix tomorrow. Await pathology from biopsies. Continue Protonix therapy.
[2020-08-26 13:07] VITALS: RESP 16
[2020-08-26 13:17] VITALS: BP 134/60; PULSE 68
== END 2020-08-26 13:28 ==
LOC: ORWHC2ENDO 10:36
PROVIDERS: ATTEND Internal Medicine
DX: K29.50 Unspecified chronic gastritis without bleeding (principal); K31.89 Other diseases of stomach and duodenum; K20.90 Esophagitis, unspecified without bleeding; I10 Essential (primary) hypertension; E78.5 Hyperlipidemia, unspecified; F17.200 Nicotine dependence, unspecified, uncomplicated; G51.0 Bell's palsy; I69.344 Monoplegia of lower limb following cerebral infarction affecting left non-dominant side; Z87.11 Personal history of peptic ulcer disease; Z88.8 Allergy status to other drugs, medicaments and biological substances; Z79.899 Other long term (current) drug therapy; Z79.02 Long term (current) use of antithrombotics/antiplatelets; Z98.890 Other specified postprocedural states; Z90.49 Acquired absence of other specified parts of digestive tract; Z86.19 Personal history of other infectious and parasitic diseases
CPT/HCPCS: 88305; 43239; J2704

== ENCOUNTER → 2021-09-03 | Outpatient (CLI) | payer MEDICARE | END | disposition home or self-care (01) | LOC: RADUSWWP 12:43 | PROVIDERS: ATTEND Family Medicine | DX: I73.9 Peripheral vascular disease, unspecified (principal) | CPT/HCPCS: 93923 ==